=== PATIENT | male | born 1980 | race African-American/Black ===

== ENCOUNTER 2017-04-23 10:38 | Inpatient (IN) | payer OTHER ==
[~2017-04-23] VITALS: Ht 195.6 cm; Wt 99.8 kg
--- NOTE | ~2017-04-23 | HP ---
Unit #: [id number] #: [id number] Patient: HILARY VENEGAS JR [id number] [place] [address] [id number] MR#: [id number] NAME: HILARY VENEGAS JR ROOM: P211 Age: 36 Sex: M Admission Date: 04/23/2017 : 1980 Attending Physician: Riddhi Figueroa M.D. Admitting Physician: Riddhi Figueroa M.D. Primary Care Physician: Melo Doctor Not In System HISTORY AND PHYSICAL HISTORY OF PRESENT ILLNESS Hilary is a 36 year old admitted to [address] [place] [address] because of his drug use. He shoots heroin. He has had other admissions to this facility for the same. PAST MEDICAL HISTORY 1. Long history of illicit substance abuse to include IV heroin. 2. High blood pressure. 3. Hepatitis C. 4. History of withdrawal seizures. PAST SURGICAL HISTORY T & A. ALLERGIES No known drug allergies. SOCIAL HISTORY Smokes one pack per day. Drinks alcohol on occasion. Admits to a long history of polysubstance abuse to include IV heroin. FAMILY HISTORY Medically noncontributory. REVIEW OF SYSTEMS CONSTITUTIONAL: No fever or chills. HEENT: Denies any sore throat, ear pain or runny nose. CARDIOVASCULAR: Denies chest pain, irregular heart rhythm or palpitations. CHEST: Denies shortness of breath or cough. No hemoptysis. GASTROINTESTINAL: Denies nausea, vomiting, diarrhea or chronic constipation. ENDOCRINE: Denies history of increased thirst or urination. No recent significant weight loss or gain. GENITOURINARY: Denies dysuria, frequency, or hematuria. SKIN: Denies any rashes. HEMATOLOGIC: Denies history of increased bleeding or bruising. MUSCULOSKELETAL: Denies any hot, swollen joints. No generalized muscle pain. NEUROLOGIC: Denies problems with vision or speech. No frequent, severe headaches. No numbness, tingling or weakness in any extremities. Denies loss of bladder or bowel control. CURRENT MEDICATIONS Unit #: [id number] #: [id number] Patient: HILARY VENEGAS JR 1. Detox protocol 2. Zyprexa 15 mg q.h.s. 3. Neurontin 600 mg q. 6 hours p.r.n. 4. Inderal 20 mg b.i.d. 5. Norvasc 10 mg q day 6. Wellbutrin XL 300 mg q day 7. Tenex 1 mg q day 8. Nicotine patch 14 mg q day PHYSICAL EXAMINATION GENERAL: Alert, well-nourished, in no apparent distress. VITAL SIGNS: Blood pressure 138/88, heart rate 86, respirations 16, temperature 98.6. WEIGHT: 220. HEIGHT: 6 foot 5 inches. SKIN: Warm and dry without rash or lesion. HEENT: Normocephalic. TMs not viewed. Oral and nasal passages clear. Conjunctivae clear. Pupils equal, round and reactive to light and accommodation. Extraocular movements intact. NECK: Supple without lymphadenopathy or thyromegaly. HEART: Regular rate and rhythm without murmur. LUNGS: Clear. ABDOMEN: Soft, nontender. : Not done. EXTREMITIES: No evidence of cyanosis, clubbing or edema. Moves all extremities without focal deficit. NEUROLOGICAL: Grossly within normal limits. Cranial Nerves: II: Visual muhammad are intact. III, IV AND : Extraocular movements are intact. Pupils are equal, round and reactive to light. V: Facial sensation is grossly normal. VII: Facial movements and expression are normal. VIII: Auditory acuity grossly intact. IX, X: Uvula is midline. Phonation is normal. XI: Patient shrugs shoulders and turns head normally. XII: Tongue protrudes in the midline. Sensory and Motor Function: Sensory and motor sensation is grossly normal. Motor: moves all extremities well. Coordination: Gait is normal. Deep Tendon Reflexes: Intact. IMPRESSION Psychiatric admission. RECOMMENDATIONS PSYCHIATRIC: Per psychiatrist. MEDICAL: I see no contraindications to participating in facility's activities. MEDICAL PROGNOSIS Good. MEDICAL CONDITION Stable. Dictated by... Unit #: [id number] #: [id number] Patient: RUBIHILARYJAYASHREE Chaudhry P.A.-C. for Anuel Ruffin/alvina TD: 04/24/2017 22:46 JOB #: [id number] HISTORY AND PHYSICAL Page 1 of 1 X [place] Chaudhry HISTORY AND PHYSICAL
--- NOTE | ~2017-04-23 | PA ---
Unit #: [id number] #: [id number] Patient: HILARY LLOYD JR [id number] [facility] [address] [place] [address] [id number] I MR#: [id number] NAME: HILARY LLOYD JR ROOM: P211 Age: 36 Sex: M Admission Date: 04/23/2017 : 1980 Date of Assessment: 04/23/2017 Attending Physician: Riddhi Figueroa M.D. Admitting Physician: Riddhi Figueroa M.D. Primary Care Physician: Generic Doctor Not In System PSYCHIATRIC ASSESSMENT DATE OF SERVICE 04/23/2017. IDENTIFYING DATA Mr. Lloyd is a 36-year-old , male who is a resident of [place], [place], and is active under my care in the outpatient treatment program and was stepped up to the inpatient unit on a voluntary basis. CHIEF COMPLAINT "I've been relapsing and shit." HISTORY OF PRESENT ILLNESS Mr. Lloyd is a 35-year-old male with long history of mood disorder and substance abuse. He came to the hospital stating "I've been relapsing and he detoxing while blood pressure was really high and that is why sent me over here. I have gone down. Now, I've been going about 2 weeks. I think I started something using the majority of the time while in the program. I have probation appointment tomorrow and I do not know how I going to make that now, just life in general." The patient was sent from the outpatient treatment program as he came to the program and therapist stated that he needed to go inpatient for detox and told the nurse that this is the day 2 from heroin and cocaine and his scores were elevated with blood pressure 149/112 and heart rate of 98, and was having difficulty getting past because of detox symptoms and as such, recommendation for inpatient level of care for safety and stabilization was made. The patient stepped up to the inpatient unit. SUBSTANCE ABUSE HISTORY The patient reports extensive history of substance abuse and dependence including alcohol, cannabis, cocaine, opioids, and methamphetamine, and benzodiazepines, and currently it appears that opioids, cocaine, and methamphetamine have been his drug of choice as he has been mixing drugs regularly. PAST PSYCHIATRIC HISTORY The patient has had history of multiple inpatient psychiatric and chemical dependency treatments across different facilities including [facility] [place], the [facility], and [facility], and has been diagnosed and treated for bipolar disorder and supposed to be on a combination of Zyprexa and Wellbutrin, and has not been able to show therapeutic response. PAST MEDICAL HISTORY Unit #: [id number] #: [id number] Patient: HILARY LLOYD JR The patient's medical history significant for hepatitis C, hypertension, gastroesophageal reflux disease. ALLERGIES No known medication allergies. PERSONAL AND SOCIAL HISTORY A 36-year-old male who reports that he is and lives at home with his and is unemployed and has poor social support system as his is heavy drug user as well. MENTAL STATUS EXAMINATION Young male who was casually dressed with fair personal hygiene, appears to be in no acute distress or discomfort. He was awake and alert on interaction with intact orientation to time, place, and person. His mood was anxious and depressed with a congruent affect. His speech was slow and restricted in content. His thought processes were disorganized with some looseness of associations and flight of ideas. He denies any suicidal or homicidal ideations, and also denies any auditory or visual hallucinations. His insight and judgment remain significantly impaired. DIAGNOSTIC IMPRESSION Psychiatric: Opioid dependence, moderate and acute withdrawals; methamphetamine dependence, moderate; cocaine dependence, moderate; bipolar disorder, most recent episode depressed, recurrent, moderate, without psychotic features. Medical: Hypertension, hepatitis C, gastroesophageal reflux disease. Stressors: Moderate psychosocial stressors. TREATMENT PLAN 1. The patient has presented with a history of substance abuse and mood disorder, and has been decompensating and will need inpatient hospitalization for detoxification, and safety, and stabilization. We will start him back on his home medications. We will adjust the medications and monitor response. 2. Supportive therapy was provided to the patient. 3. Safe, structured, and nourishing environment will be provided. ESTIMATED LENGTH OF STAY 5 to 7 days. ABILITY TO HELP SELF Limited. WILLINGNESS TO HELP SELF The patient appears to be willing to help self. STRENGTHS 1. Communicative. 2. Cooperative. PROBLEMS 1. Chronic dysphoric symptoms. 2. Poor social support system. DISCHARGE CRITERIA This will be contingent upon the patient's ability to show resolution of Unit #: [id number] #: [id number] Patient: HILARY LLOYD JR his depression and anxiety, and his ability to stay safe and sober, particularly after discharge from the hospital. Dictated by... Anuel Herrera/ilsa TD: 04/25/2017 19:17 JOB #: [id number] PSYCHIATRIC ASSESSMENT Page 1 of 1 X Riddhi Figueroa MD PSYCHIATRIC ASSESSMENT
--- NOTE | ~2017-04-23 | PN ---
Unit #: [id number] #: [id number] Patient: HILARY LLOYD JR [id number] [facility] [address] [place] [address] [id number] MR#: [id number] NAME: HILARY LLOYD JR ROOM: P211 Age: 36 Sex: M Admission Date: 04/23/2017 : 1980 Attending Physician: Riddhi Figueroa M.D. Admitting Physician: Riddhi Figueroa M.D. Primary Care Physician: Mleo Doctor Not In System [facility] PROGRESS NOTES DATE OF SERVICE 04/25/2017 DISCUSSION Mr. Lloyd is a 36-year-old male who was seen today. Chart was reviewed and case was discussed with the staff. He has been anxious and withdrawn though appears to be coming out of the detox. He has been taking the medications and tolerating them fairly well with no reported side effects. MENTAL STATUS EXAMINATION Young male (1) __. The patient was awake and alert with intact orientation. His mood is anxious with congruent affect. He denies any suicidal or homicidal ideations. His insight and judgment remain slightly impaired. TREATMENT PLAN 1. We will continue him on his current medications and detox protocol. We will monitor his response and make further adjustments as needed. 2. We will continue to follow up. Dictated by... Riddhi Figueroa M.D. IAA/bzg TD: 04/26/2017 08:29 JOB #: [id number] [facility] PROGRESS NOTES Page 1 of 1 X Riddhi Figueroa MD X PROGRESS NOTE
--- NOTE | ~2017-04-23 | DS ---
Unit #: [id number] #: [id number] Patient: HILARY LLOYD JR [id number] [facility] [address] [place] [address] [id number] I MR#: [id number] NAME: HILARY LLOYD JR ROOM: P211 Age: 36 Sex: M Admission Date: 04/23/2017 : 1980 Discharge Date: 04/26/2017 Attending Physician: Riddhi Figueroa M.D. Primary Care Physician: Generic Doctor Not In System DISCHARGE SUMMARY IDENTIFYING DATA Mr. Lloyd is a 36-year-old male, who is known to us from previous encounter and was self-referred to the hospital. DISCHARGE DIAGNOSES Psychiatric: Bipolar disorder, most recent episode depressed, recurrent, moderate, without psychotic features; opioid dependence, moderate, in acute withdrawals; cocaine abuse, moderate; and methamphetamine abuse, moderate. Medical: None. Stressors: Moderate psychosocial stressors. HISTORY OF PRESENT ILLNESS Please see initial psychiatric evaluation for details. PAST PSYCHIATRIC HISTORY Please see initial psychiatric evaluation for details. PAST MEDICAL HISTORY Please see initial psychiatric evaluation for details. HOSPITAL COURSE The patient was [facility] and was oriented to the hospital environment. Routine p.r.n. medications were initiated and he was started back on his home medications and medications were adjusted and he was closely monitored. He was taking the medications regularly and was tolerating them fairly well and was able to show a decent and therapeutic response and was able to come out of the detox without any complications, and as such, it was decided that he will be discharged home and will continue treatment on an outpatient basis. DISCHARGE CONDITION Stable. PROGNOSIS Fair. Dictated by... Anuel Herrera/ilsa TD: 04/26/2017 12:33 Unit #: [id number] #: [id number] Patient: HILARY LLOYD JR JOB #: [id number] DISCHARGE SUMMARY Page 1 of 1 X Riddhi Figueroa MD X DISCHARGE SUMMARY
[2017-04-24 12:49] LABS: BASOPHIL% 0.5 % (0-2.5); EOSINOPHIL# 0.1 X10e3 (0-0.7); EOSINOPHIL% 1.3 % (0.0-7.0); HEMATOCRIT 45.3 % (38.0-50.0); HEMOGLOBIN 14.9 gm/dL (13.0-16.0); LYMPHOCYTE# 2.4 X10e3 (1.0-3.5); LYMPHOCYTE% 26.5 % (17.0-45.0); MEAN CELL VOLUME 86.2 FL (83-96); MEAN CORPUSCULAR HEMOGLOBIN 28.5 PG (28-34); MEAN PLATELET VOLUME 6.9 FL (6.5-11.5); MONOCYTE# 0.7 X10e3 (0-1.0); MONOCYTE% 8.2 % (3.0-12.0); NEUTROPHIL# 5.7 X10e3 (1.5-7.1); NEUTROPHIL% 63.5 % (40-75); PLATELET COUNT 433 X10e3 (140-420); RED BLOOD COUNT 5.25 X10e (3.90-5.60); RED CELL DISTRIBUTION WIDTH 15.5 % (11.0-15.5)
[2017-04-24 12:53] LABS: DIFF IND NO
[2017-04-24 13:03] LABS: URINE APPEARANCE CLEAR; URINE BILIRUBIN NEG (NEG); URINE BLOOD NEG (NEG); URINE COLOR YELLOW; URINE GLUCOSE NEG (NEG); URINE KETONE NEG (NEG); URINE LEUKOCYTE ESTERASE NEG (NEG); URINE NITRATE NEG (NEG); URINE PH 6.5 (5-8); URINE PROTEIN NEG (NEG); URINE SPECIFIC GRAVITY 1.026 (1.003-1.035); URINE UROBILINOGEN 0.2 MG/DL (NEG)
[2017-04-24 13:08] LABS: ALBUMIN SERUM 3.6 g/dL (3.5-5.0); BILIRUBIN,TOTAL 0.3 mg/dL (0.2-2.0); BUN/CREATININE RATIO 8.18; CALCIUM SERUM 9.6 mg/dL (8.4-10.2); CREATININE SERUM 1.1 mg/dL (0.6-1.4); GLOM FILT RATE Estimated 100.3 mL/min (>60); POTASSIUM 4.5 mmol/L (3.5-5.1); PROTEIN TOTAL SERUM 7.4 g/dL (6.0-8.3)
[2017-04-24 13:13] LABS: AMPHETAMINE NEG (NEG); BARBITURATES NEG (NEG); BENZODIAZEPINES NEG (NEG); COCAINE POS (NEG); MARIJUANA NEG (NEG); OPIATES POS (NEG); TRICYCLIC ANTIDEPRESSANTS NEG (NEG); U METHADONE NEG (NEG)
== END 2017-04-26 09:58 | DRG 885 ==
LOC: P2S 15:49
PROVIDERS: Psychiatry & Neurology Psychiatry
PROC: HZ2ZZZZ Detoxification Services for Substance Abuse Treatment (ICD-10-PCS; principal; 2017-04-23)
DX: F31.32 Bipolar disorder, current episode depressed, moderate (principal); I10 Essential (primary) hypertension; F11.23 Opioid dependence with withdrawal; F14.10 Cocaine abuse, uncomplicated; F15.10 Other stimulant abuse, uncomplicated; B18.2 Chronic viral hepatitis C; K21.9 Gastro-esophageal reflux disease without esophagitis; F17.200 Nicotine dependence, unspecified, uncomplicated
CPT/HCPCS: 80053; 80307; 81003; 85025; 86592